=== PATIENT | female | born 1995 ===

== ENCOUNTER 2016-09-06 02:03 | Emergency (ER) | payer MEDICAID ==
[2016-09-06 02:32] LABS: BASOPHILS 0.2 % (0.0-2.0); EOSINOPHILS 0.5 % (0-7); HEMATOCRIT 35.8 % (36.0-48.0); HEMOGLOBIN 11.8 g/dL (12-16); IMMATURE GRANULOCYTES 0.8 % (0-5); LYMPHOCYTES 9.6 % (15-50); MCH 29.8 pg (26.0-34.0); MCV 90.4 fL (80.0-100.0); MEAN PLATELET VOLUME 12.8 fL (7.4-10.4); MONOCYTES 5.3 % (2-11); NEUTROPHILS 83.6 % (40-80); PLATELET COUNT 230 10x3/uL (130-400); RBC 3.96 10x6/uL (4.00-5.40); RDW 13.7 % (11.5-14.5); WBC 12.2 10x3/uL (4.8-10.8)
[2016-09-06 02:44] LABS: ALBUMIN 2.6 g/dL (3.4-5.0); ALKALINE PHOSPHATASE 142 U/L (46-116); ALT (SGPT) 34 U/L (10-68); BILIRUBIN - TOTAL 1.13 mg/dL (0.2-1.3); CALC OSMOLALITY 266 mosm/kg (275-300); CALCIUM 8.8 mg/dL (8.5-10.1); CARBON DIOXIDE 20.1 mmol/L (21.0-32.0); CHLORIDE - SERUM 99 mmol/L (98-107); CREATININE - SERUM 0.6 mg/dL (0.6-1.3); GLUCOSE 92 mg/dL (74-106); POTASSIUM - SERUM 3.2 mmol/L (3.5-5.1); PROTEIN - SERUM 7.6 g/dL (6.4-8.2); SODIUM 135 mmol/L (136-145); UREA NITROGEN 3 mg/dL (7-18); eGFR NON AFRICAN AMERICAN > 90 mL/min (90-120)
== END 2016-09-06 03:58 | disposition home or self-care (01) ==
LOC: D.ER 02:03
PROVIDERS: Emergency Medicine
DX: R50.9 Fever, unspecified (principal); E87.6 Hypokalemia